=== PATIENT | female | born 1990 | race Two or more races ===

== ENCOUNTER 2023-11-12 06:00 | Day surgery (SDC) | payer OTHER ==
[~2023-11-12] VITALS: Ht 162.6 cm; Wt 89.8 kg
[2023-11-12] MEDS ORDERED: CEFTRIAXONE SODIUM 2,000 MG VIAL ONE (08:34)
[2023-11-12] MEDS ORDERED: METRONIDAZOLE/SODIUM CHLORIDE 500 MG/100 ML PIGGYBACK IV ONE (08:35)
[2023-11-12] MEDS ORDERED: POVIDONE-IODINE 118 ML BOTT TOP ONE (10:45)
[2023-11-12] MEDS ORDERED: DIBUCAINE 15 GM OINT..GM. TUBE ONE (10:45)
[2023-11-12] MEDS ORDERED: HEMOSTATIC MATRIX 1 KIT KIT TOP ONE ×2 (10:53→11:30)
[2023-11-12] MEDS ORDERED: BUPIVACAINE LIPOSOME/PF 266 MG/20 ML VIAL IJ ONE ×2 (11:12→11:30)
[2023-11-12] MEDS ORDERED: POVIDONE-IODINE 118 ML BOTT TP ONE (11:30)
[2023-11-12] MEDS ORDERED: METRONIDAZOLE/SODIUM CHLORIDE 200 ML IV ONE (11:30)
[2023-11-12] MEDS ORDERED: CEFTRIAXONE SODIUM 2,000 MG in 0.9 % SODIUM CHLORIDE 50 ML IV ONE (11:30)
[2023-11-12] MEDS ORDERED: DIBUCAINE 30 GM TUBE RC ONE (11:30)
[2023-11-12] MEDS ORDERED: TAMSULOSIN HCL 0.4 MG CAP PO ONE ×2 (12:00→13:31)
[2023-11-12] MEDS ORDERED: OXYC1TAB9 PO (12:06)
== END 2023-11-12 13:30 | disposition home or self-care (01) ==
LOC: CIR.AMB 06:00
PROVIDERS: ATTEND Surgery
DX: K64.8 Other hemorrhoids (principal); K64.4 Residual hemorrhoidal skin tags; K62.89 Other specified diseases of anus and rectum; Z20.822 Contact with and (suspected) exposure to COVID-19